=== PATIENT | female | born 2000 | race Caucasian/White ===

== ENCOUNTER 2025-04-17 00:11 | Emergency (ER) | payer OTHER ==
[2025-04-17 00:23] VITALS: PULSE 60; RESP 20; TEMP 97.5; BMI 25.0
[2025-04-17 01:01] LABS: HCG,QUALITATIVE URINE Negative
[2025-04-17 01:16] LABS: URINE APPEARANCE CLOUDY; URINE BILIRUBIN NEGATIVE (NEGATIVE); URINE COLOR YELLOW; URINE GLUCOSE (UA) NEGATIVE (NEGATIVE); URINE KETONE TRACE (NEGATIVE); URINE LEUK ESTERASE NEGATIVE (NEGATIVE); URINE NITRITE NEGATIVE (NEGATIVE); URINE PROTEIN NEGATIVE (NEGATIVE); URINE UROBILINOGEN 0.2 mg/dL (0.2-1.0)
[2025-04-17 01:49] VITALS: BP 110/70
== END 2025-04-17 01:49 | disposition home or self-care (01) ==
LOC: JER 00:11
DX: R30.0 Dysuria (principal)
CPT/HCPCS: 81003; 84703; 87086; 99283-25